=== PATIENT | female | born 1950 | race Caucasian/White ===

== ENCOUNTER 2017-10-15 12:04 | Emergency (ER) | payer OTHER ==
--- NOTE | 2017-10-15 12:06 | PDOC ---
History of Present Illness - General Chief Complaint: Suture/Staple Removal(Here) Stated Complaint: LEFT 3RD FINGER SUTURE REMOVAL Time Seen by Provider: 10/15/17 12:06 History Source: Patient Exam Limitations: No Limitations - History of Present Illness Initial Comments: 10/15/17 12:07 67 YOF with h/o HTN, depression and sz, presenting with wound reeval and suture removal. On 10/07/17 sustained laceration s/p suture placementx3 ~ 1 week ago for left middle finger laceration, since then no f/c, weakness or pain/swelling/ redness. +numbness to area. Tdap updated at that time. Past History - Past Medical History Allergies/Adverse Reactions: Allergies Allergy/AdvReac Type Severity Reaction Status Date / Time No Known Allergies Allergy Verified 10/15/17 12:06 Home Medications: Ambulatory Orders Biotin 10/07/17 Fluoxetine HCl 10/07/17 Folic Acid 10/07/17 Lamictal - 10/07/17 Multivit-Min/Iron/Folic/Lutein [Centrum Silver Women Tablet] 1 each PO DAILY 03/15 Valsartan 10/07/17 Vitamin D3 10/07/17 COPD: No HTN: Yes Psychiatric Problems: Yes (DEPRESSION) Seizures: Yes - Suicide/Smoking/Psychosocial Hx Smoking History: Never smoked Hx Alcohol Use: No Drug/Substance Use Hx: No Review of Systems - Review of Systems Able to Perform ROS?: Yes Constitutional: Yes: See HPI. No: Chills, Fever Musculoskeletal: No: Joint Pain, Joint Swelling, Muscle Pain, Muscle Weakness, Joint Stiffness Integumentary: Yes: Other (skin laceration healed) Neurological: Yes: Numbness. No: Paresthesia, Tingling, Weakness All Other Systems: Reviewed and Negative *Physical Exam - Physical Exam Comments: 10/15/17 12:10 General, well appearing. FDS/FDP intact. Sensation grossly intact to left distal middle finger, joint rom intact. 1cm linear laceration well healed with [address], no purulence erythema or swelling. Soft compartment. 2+ radialis pulses, cap refill <2 sec. Procedures - Additional Procedures Additional Procedures: other (suture removal x3 over left distal pulp middle finger, steri strips x2 placed. uncomplicated skin well approximated. no signs of bleeding or infection.) Medical Decision Making - Medical Decision Making 10/15/17 12:11 67 YOF with left middle finger laceration 10/07/17 presenting for suture removal suture removal x3 over left distal pulp middle finger, steri strips x2 placed. uncomplicated skin well approximated. no signs of bleeding or infection Discharge in stable condition. Sutures x3 removed to left middle finger, uncomplicated, skin well approximated. steri strips over the wound for improved alignment and skin wound more approximated to allow appropriate epithelialization. Wound care instructions and cleaning advised. Otc pain meds PRN. f/u pmd as needed. Monitor for signs of infection. *DC/Admit/Observation/Transfer Diagnosis at time of Disposition: Visit for suture removal - Discharge Dispostion Disposition: HOME Condition at time of disposition: Improved Decision to Admit order: No - Referrals - Patient Instructions Printed Discharge Instructions: DI for Suture Removal Additional Instructions: keep wound clean and dry, may use topical antibiotics. steri strips are strong bandaids to allow better approximation of your skin wound. monitor for signs of infection or worsening pain. follow up with your doctor as needed. motrin/ tylenol for pain - Post Discharge Activity Forms/Work/School Notes: Back to Work
[2017-10-15 12:12] VITALS: BP 133/55; PULSE 85; TEMP 98; BMI 24.7
== END 2017-10-15 12:25 | disposition home or self-care (01) ==
LOC: FER 12:04
DX: Z48.02 Encounter for removal of sutures (principal)
CPT/HCPCS: 99281-25

== ENCOUNTER 2018-03-12 09:55 | Emergency (ER) | payer OTHER ==
--- NOTE | 2018-03-12 10:03 | PDOC ---
History of Present Illness - General Chief Complaint: Headache Stated Complaint: SENT FROM [facility] FOR CAT SCAN FOR HEADACHE Time Seen by Provider: 03/12/18 10:03 - History of Present Illness Initial Comments: 67 year old female with PMH of depression and seizure disorder (2/2 left temporal lesion of unknown etiology, on lamotrigine) presenting with headache and nausea for the past four days. Patient states that she does not get headaches frequently and does not have history of migraines. Her headaches started 4 days ago and she attributed them to holiday stress so she took Tylenol with very minor relief. She used Tylenol for the next two days with minimal relief but then achieved adequate relief with Tylenol + Aleve combination. Describes the headaches as originally a sharp pain on the very top of her skull but now bi-temporal with a squeezing and sharp location with constant duration. The pain is a maximum of 8/10 in severity but can be as low as a 1/10 after medication. The pain is worse with head movement and cough but not worse at any particular time of day. She does admit to sonophobia and photophobia when the headache is particularly intense but no visual or neurological symptoms. She denies any vomiting, diarrhea, congestion, fevers, chills, cough, chest pain, or other symptoms. 03/12/18 10:18 Past History - Past Medical History Allergies/Adverse Reactions: Allergies Allergy/AdvReac Type Severity Reaction Status Date / Time No Known Allergies Allergy Verified 03/12/18 09:57 Home Medications: Ambulatory Orders Acetaminophen [Tylenol] 650 mg PO PRN 03/12/18 Cholecalciferol (Vitamin D3) [Vitamin D3] 5,000 unit PO DAILY 03/12/18 Fluoxetine HCl 10 mg PO DAILY 03/12/18 Folic Acid 1 mg PO DAILY 03/12/18 Lamotrigine [Lamictal Xr] 200 mg PO BID 03/12/18 Valsartan 160 mg PO DAILY 03/12/18 COPD: No HTN: Yes Psychiatric Problems: Yes (DEPRESSION) Seizures: Yes - Immunization History Immunization Up to Date: Yes (09/2017) - Suicide/Smoking/Psychosocial Hx Smoking History: Never smoked Have you smoked in the past 12 months: No Hx Alcohol Use: No Drug/Substance Use Hx: No Substance Use Type: None Review of Systems - Review of Systems Constitutional: No: Chills, Diaphoresis, Fever HEENTM: No: Blurred Vision, Tearing, Double Vision Respiratory: No: Cough, Orthopnea, Shortness of Breath, Wheezing Cardiac (ROS): No: Chest Pain, Edema, Irregular Heart Rate ABD/GI: Yes: Nausea. No: Diarrhea, Poor Appetite, Vomiting, Indigestion : No: Burning, Dysuria, Discharge Musculoskeletal: No: See HPI, Back Pain, Gout, Joint Pain Integumentary: No: Erythema, Flushing, Lesions, Lumps Neurological: Yes: Headache, Seizure. No: Numbness, Paresthesia, Tremors, Weakness, Ataxia, Dizziness Psychiatric: Yes: Depression. No: Anxiety Hematologic/Lymphatic: No: Anemia, Blood Clots, Easy Bleeding *Physical Exam - Physical Exam General Appearance: Yes: Nourished, Appropriately Dressed. No: Apparent Distress HEENT: positive: EOMI, LYNN, Normal ENT Inspection, Normal Voice Neck: positive: Trachea midline, Normal Thyroid, Supple. negative: Tender, Rigid Respiratory/Chest: positive: Lungs Clear, Normal Breath Sounds. negative: Chest Tender, Respiratory Distress, Accessory Muscle Use Cardiovascular: positive: Regular Rhythm, Regular Rate Gastrointestinal/Abdominal: positive: Normal Bowel Sounds, Flat, Soft. negative : Tender Lymphatic: negative: Adenopathy, Tenderness Musculoskeletal: positive: Normal Inspection Extremity: positive: Normal Capillary Refill, Normal Inspection, Normal Range of Motion. negative: Tender Integumentary: positive: Normal Color, Dry, Warm Neurologic: positive: parakeet raiser II-XII NML intact, Fully Oriented, Alert, Normal Mood/ Affect, Normal Response, Motor Strength 5/5 ED Treatment Course - LABORATORY CBC & Chemistry Diagram: 03/12/18 10:37 03/12/18 10:37 Medical Decision Making - Medical Decision Making 67 year old female with PMH of temporal lesion with seizures who has been asymptomatic for the past few years presenting with headache. She does describe symptoms somewhat consistent with migraine, photophobia/ sonophobia but given her lesion we should rule out intra-cranial mass especially because of constant quality of pain and worsening with movement. No nuchal rigidity or fevers to suggest meningitis and no palpable tenderness or firmness over temporal regions to suggest GCA along with normal ESR. Patient given one dose toradol IV, I L IV NS, and 10 PO Reglan with good relief of her symptoms. 03/12/18 12:03 *DC/Admit/Observation/Transfer Diagnosis at time of Disposition: Headache Qualifiers: Headache type: unspecified Headache chronicity pattern: acute headache Intractability: not intractable Qualified Code(s): R51 - Headache - Discharge Dispostion Disposition: HOME Condition at time of disposition: Stable Decision to Admit order: No - Referrals Referrals: [facility] [Provider Group] - Patient Instructions Printed Discharge Instructions: DI for Headache Additional Instructions: Your head CT did not show any bleed or mass. Your symptoms do seem migraine- like. You should continue to stay hydrated at home and use Tylenol/ Motrin for the headache as needed. Please follow up with the primary care doctor this week to have someone to manage your medications as you spend a good time here in [place]. Please return to the the ED if you have any new or worsening symptoms. - Post Discharge Activity
--- NOTE | 2018-03-12 10:05 | PDOC ---
Attending Attestation - Resident Resident Name: Naomi Cueto - ED Attending Attestation I have performed the following: I have examined & evaluated the patient, The case was reviewed & discussed with the resident, I agree w/resident's findings & plan, Exceptions are as noted - HPI HPI: 03/12/18 10:50 Patient is from [place], here visiting her family for the holidays, complains of an intermittent headache for the last few days. Headaches began while she was in [place], persisted upon arriving here in the ER, partially relieved by acetaminophen and naproxen, but continuously present. Minimal nausea, no vomiting, no photophobia, no URI symptoms, earache, cough, chest pain, shortness of breath, abdominal pain, diarrhea, hematemesis, melena, bloody stool. The patient seldom suffers headaches, has a seizure disorder manifested as partial, affecting speech and comprehension, with no actual seizures in several years. Diagnosed approximately 25 years ago, maintained on lamotrogine, seemingly emanating from a benign lesion in her left temporal lobe. She is under the care of a neurologist with frequent reevaluation, most recently in August. She has had no recent complications. No recent imaging studies. - Physicial Exam PE: 03/12/18 10:54 Physical exam reveals a well-developed well-nourished female in no acute distress, cheerful and cooperative, intelligent and well informed about her condition Afebrile, vital signs normal PERRLA 4 mm, fundi benign with sharp disc margins and good central venous pulsations. No hemorrhages or exudates ENT clear Neck supple without bruit mass or nodes Lungs clear CV regular without murmur rub or gallop pulses full and symmetric no JVD or edema no bruits Abdomen soft nontender without mass or organomegaly Neurological: Fully alert, oriented 3, normal mentation. Cranial nerves intact. Strength full and symmetric. No focal sensory or motor deficits. Gait stable and unimpaired Skin clear, no rash, adequate turgor and wet mucous membranes Extremities no CCE - Medical Decision Making 03/12/18 10:55 Assessment: Unusually persistent headache in woman with known lesion of the temporal lobe and resultant seizure disorder. Seizure disorder is controlled. No other signs or symptoms of increasing size of space-occupying lesion. No signs of URI or sinusitis. Most likely this is tension/stress related. Plan: CT of the brain and further evaluation depending on results. Symptomatic treatment. 03/12/18 11:26 CT today is negative. CBC and chemistries without significant abnormalities. Continue analgesics as needed and see neurologist if symptoms persist 2-3 days. Fully ambulatory, in no apparent pain or other distress upon discharge to follow -up as directed
[2018-03-12 10:15] VITALS: TEMP 99; BMI 24.3
[2018-03-12] MEDS ORDERED: SODIUM CHLORIDE 0.9% 500 ML INFUS.BAG IV ONE (10:17)
[2018-03-12] MEDS ORDERED: METOCLOPRAMIDE HCL 10 MG TABLET (FP) PO ONE ×2 (10:17→10:19)
[2018-03-12 10:40] LABS: MEAN PLT VOLUME 6.9 fl (7.5-11.1); PLATELET COUNT 184 K/MM3 (134-434)
[2018-03-12 10:43] LABS: HEMATOCRIT 39.3 % (32.4-45.2); HEMOGLOBIN 13.2 GM/dl (10.7-15.3); MCH 32.7 pg (25.7-33.7); MCHC 33.7 g/dl (32.0-36.0); RBC 4.05 M/mm3 (3.60-5.2); RDW 12.7 % (11.6-15.6)
[2018-03-12 11:03] LABS: ALBUMIN 3.6 g/dl (3.5-5.0); ALK PHOS 94 U/L (32-92); ANION GAP 9 MMOL/L (8-16); BILIRUBIN,TOTAL 0.6 mg/dl (0.2-1.0); BLOOD UREA NITROGEN 17 mg/dl (7-18); CHLORIDE 104 mmol/L (98-107); CO2 22 mmol/L (22-28); CREATININE 0.8 mg/dl (0.6-1.3); GLUCOSE,RANDOM 92 mg/dl (74-106); POTASSIUM 3.9 mmol/L (3.5-5.1); SGOT/AST 36 U/L (10-42); SGPT/ALT 33 U/L (10-40); SODIUM 135 mmol/L (136-145); TOT PROT 6.3 g/dl (6.4-8.3)
[2018-03-12 11:32] LABS: ERYTHROCYTE SEDIMENTATION RATE 14 mm/hr (0-30)
[2018-03-12] MEDS ORDERED: KETOROLAC TROMETHAMINE 15 MG/ML VIAL IVPUSH ONE (11:49)
[2018-03-12] MEDS ORDERED: KETOROLAC TROMETHAMINE 15 MG/ML VIAL ONE (11:54)
[2018-03-12 12:26] VITALS: BP 135/62; PULSE 62
[2018-03-12 12:43] LABS: PLATELET ESTIMATE ADEQUATE
== END 2018-03-12 12:29 | disposition home or self-care (01) ==
LOC: FER 09:55
PROC: 3E0337Z Introduction of Electrolytic and Water Balance Substance into Peripheral Vein, Percutaneous Approach (ICD-10-PCS; principal; 2018-03-12)
PROC: 3E0333Z Introduction of Anti-inflammatory into Peripheral Vein, Percutaneous Approach (ICD-10-PCS; 2018-03-12)
DX: R51 Headache (principal); I10 Essential (primary) hypertension; F32.9 Major depressive disorder, single episode, unspecified
CPT/HCPCS: 36415; 70450-TC; 80053; 85025; 85651; 99282-25

== ENCOUNTER 2018-03-14 17:31 | Inpatient (IN) | payer OTHER ==
[2018-03-14 17:36] VITALS: BMI 24.3
[2018-03-14] MEDS ORDERED: VANCOMYCIN 1 GRAM (PRE-DOCKED) 1,000 MG/250 ML BAG IVPB ONE (18:02)
[2018-03-14] MEDS ORDERED: DEXAMETHASONE SOD PHOSPHATE 4 MG/1 ML VIAL IVPUSH ONE (18:11)
--- NOTE | 2018-03-14 18:18 | PDOC ---
History of Present Illness - General Chief Complaint: Headache Stated Complaint: fever,headache Time Seen by Provider: 03/14/18 17:42 History Source: Patient Exam Limitations: No Limitations - History of Present Illness Initial Comments: 03/14/18 18:42 67 year old woman with history HTN, epilepsy and depression who presents with headache and nausea that onset 6 days ago and has been waxing and waning. Now patient with new fever of 101.8 (tm) that occurred just prior to arrival, after which she took Advil. The patient was seen 2 days ago in the ED and had a head CT that was negative. The headache is described as "pulsing and pounding" worsening with very bright lights and with high pitches. The patients headache and nausea was previously relieved with Tylenol and Advil but since last night has not been able to have relief with those medications. She complains of some "neck stiffness" but denies any limit in range of motion. She denies muscle aches or weakness, dysuria, hematuria, N/V/D/C. She has no other complaints at bedside. PMHX: as in HPI Meds: valsartan, lamotrigine, fluoxetine Allergies: NKDA Past History - Past Medical History Allergies/Adverse Reactions: Allergies Allergy/AdvReac Type Severity Reaction Status Date / Time No Known Allergies Allergy Verified 03/14/18 17:33 Home Medications: Ambulatory Orders Cholecalciferol (Vitamin D3) [Vitamin D3] 5,000 unit PO DAILY 03/12/18 Fluoxetine HCl 20 mg PO DAILY 03/12/18 Folic Acid 1 mg PO DAILY 03/12/18 Lamotrigine [Lamictal Xr] 200 mg PO BID 03/12/18 Valsartan 160 mg PO DAILY 03/12/18 COPD: No HTN: Yes Psychiatric Problems: Yes (DEPRESSION) Seizures: Yes - Immunization History Immunization Up to Date: Yes (09/2017) - Suicide/Smoking/Psychosocial Hx Smoking History: Never smoked Have you smoked in the past 12 months: No Hx Alcohol Use: No Drug/Substance Use Hx: No Substance Use Type: None Review of Systems - Review of Systems Able to Perform ROS?: Yes Is the patient limited Martiniquais proficient: No Constitutional: Yes: Chills, Fever. No: Diaphoresis HEENTM: No: Blurred Vision, Tearing, Double Vision, Tinnitus Respiratory: No: Cough, Orthopnea, Shortness of Breath Cardiac (ROS): No: Chest Pain, Palpitations, Chest Tightness ABD/GI: No: Constipated, Diarrhea, Nausea, Vomiting : No: Burning, Dysuria, Hematuria Musculoskeletal: No: Back Pain, Muscle Pain, Muscle Weakness Neurological: Yes: See HPI, Headache. No: Numbness, Paresthesia, Tingling *Physical Exam - Vital Signs Last Vital Signs Temp Pulse Resp BP Pulse Ox 0/0 L 03/14/18 17:32 - Physical Exam Comments: 03/14/18 18:52 GENERAL: Awake, alert, and fully oriented, in no acute distress HEAD: No signs of trauma, normocephalic, atraumatic EYES: PERRLA, EOMI, sclera anicteric, conjunctiva clear ENT: Auricles normal inspection, hearing grossly normal, nares patent, oropharynx clear without exudates. Moist mucosa, NECK: Normal ROM, supple, + mild cervical lymph tenderness, no masses LUNGS: No distress, speaks full sentences, clear to auscultation bilaterally HEART: Regular rate and rhythm, normal S1 and S2, no murmurs, rubs or gallops, peripheral pulses normal and equal bilaterally. ABDOMEN: Soft,+ LUQ tenderness to palpation, + LUQ guarding, no rebound. No masses BACK: + bilateral CVA tenderness, negative Kernigs, neg Brudzinski EXTREMITIES : Normal inspection, Normal range of motion, no edema. No clubbing or cyanosis. NEUROLOGICAL: Cranial nerves II through XII grossly intact. Normal speech, no focal sensorimotor deficits SKIN: Warm, Dry, normal turgor, no rashes or lesions noted Moderate Sedation - Procedure Monitoring Vital Signs: Procedure Monitoring Vital Signs Temperature Pulse Rate Respiratory Rate Blood Pressure 0/0 L 03/14/18 17:32 O2 Sat by Pulse Oximetry (%) ED Treatment Course - LABORATORY CBC & Chemistry Diagram: 03/14/18 18:31 03/14/18 18:31 Medical Decision Making - Medical Decision Making 03/14/18 18:54 67 year old woman with history HTN, epilepsy and depression who presents with headache and nausea that onset 6 days ago and has been waxing and waning. The patient was seen 2 days ago in the ED and had a head CT that was negative. The headache is described as "pulsing and pounding" worsening with very bright lights and with high pitches. The patients headache and nausea was previously relieved with Tylenol and Advil but since last night has not been able to have relief with those medications. She complains of some "neck stiffness" but denies any limit in range of motion. She denies muscle aches or weakness, dysuria, hematuria, N/V/D/C. She has no other complaints at bedside. DDX including but not limited to: viral meningitis vs bacterial meningitis vs migraine vs influenza W/U: - cbc, cmp, pt/inr, ptt - cxr - head ct - abd us - ua, ucx TX: - ceftriaxone, vancomycin - ns ED Course: Patient is weak appearing. complainging of neck sitffness and has a history concerning for meningitis However patient with full range of motion of the neck, negative brudzinski and kernigs, Will evaluate. 03/14/18 19:30 Patient signed out to oncoming team. Dr. Stock attending. *DC/Admit/Observation/Transfer Diagnosis at time of Disposition: Headache - Discharge Dispostion Condition at time of disposition: Stable - Referrals Referrals: Tadeo Singletary [Primary Care Provider] - - Patient Instructions - Post Discharge Activity
[2018-03-14 18:39] LABS: PH,URINE 5.5 (4.5-8); URINE APPEARANCE Clear; URINE BILIRUBIN 1+ (NEGATIVE); URINE COLOR Yellow; URINE GLUCOSE (UA) Negative (NEGATIVE); URINE KETONE 4+ (NEGATIVE); URINE LEUK ESTERASE Negative (NEGATIVE); URINE NITRITE Negative (NEGATIVE); URINE PROTEIN Trace (NEGATIVE); URINE UROBILINOGEN 0.2 (0.2-1.0)
[2018-03-14] MEDS ORDERED: ACETAMINOPHEN 1000 MG/100 ML VIAL (NON FORMULARY) IVPB ONE (18:41)
[2018-03-14] MEDS ORDERED: SODIUM CHLORIDE 0.9% 1000 ML INFUS.BAG IV ONE (18:41)
--- NOTE | 2018-03-14 18:42 | PDOC ---
Attending Attestation - Resident Resident Name: Juanita Carbone - ED Attending Attestation I have performed the following: I have examined & evaluated the patient, The case was reviewed & discussed with the resident, I agree w/resident's findings & plan, Exceptions are as noted - HPI HPI: 03/14/18 18:39 67 years old past medical history significant for depression seizure disorder well controlled on Lamictal presents to the emergency department with now has 6 day history of headache progressively worsening 1 headache started 4 days ago very sudden onset she came to the emergency department had a CAT scan done and was given Reglan and Benadryl with good improvement in symptomatology. Over the last few days patient now with fevers controlled by Motrin chills rigor sweats, aggressively worsening headache and some subjective neck pain. She was seen by her neurologist today and sent back to the emergency department for further evaluation. No travel no sick contacts no nausea no vomiting no change in mental status - Physicial Exam PE: 03/14/18 18:39 Vitals: Triage Vital signs reviewed General Appearance: no acute distress, well nourished well developed, Head: Atraumatic, Eyes: Pupils equal reactive round, extraocular movement intact Throat: Posterior oropharynx without erythema, mucous membranes moist, Neck: Supple;No Nucal rigidity Chest Wall: Nontender Cardiac: Regular rate and rhythym, no murmurs, no rubs, no gallops, Lungs: Clear to auscultation bilateral, good air movement bilaterally, Abdomen: Soft, non distended, normal bowel sounds, mild right upper quadrant tenderness to palpation Extremities: Full range of motion to all extremities, no cyanosis, clubbing, or edema Skin: Warm and dry, no rashes or lesions, no rash, no petechiae Neuro: AOX3; Cranial Nerves 2-12 grossly intact, Strength intact to all extremities, Sensation intact to all extremities,gait normal Psych: normal mood, normal affect - Medical Decision Making 03/14/18 18:40 67 years old with several day history of headache now complicated by fever chills sweats and riders Differential diagnosis includes influenzal-like illness less likely meningitis however given this possibility while we workup the patient in the emergency department Decadron and ceftriaxone and vancomycin was ordered Plan is for hydration IV Tylenol labs flu swab right upper quadrant ultrasound given tenderness to palpation observe and reassess. Dr. Nassef to follow up labs, and reassass pt. and dispo
[2018-03-14 18:55] LABS: ACTIVATED PTT 25.3 SECONDS (25.2-36.5)
[2018-03-14 19:00] LABS: INR 1.02 (0.82-1.09); PROTHROMBIN TIME (PATIENT) 11.4 SEC (10.2-13.0)
[2018-03-14 19:04] LABS: ALBUMIN 3.5 g/dl (3.5-5.0); ALK PHOS 97 U/L (32-92); ANION GAP 11 MMOL/L (8-16); BILIRUBIN,TOTAL 0.8 mg/dl (0.2-1.0); BLOOD UREA NITROGEN 6 mg/dl (7-18); CALCIUM 8.9 mg/dl (8.4-10.2); CHLORIDE 96 mmol/L (98-107); CO2 24 mmol/L (22-28); CREATININE 0.6 mg/dl (0.6-1.3); GLUCOSE,RANDOM 112 mg/dl (74-106); POTASSIUM 3.6 mmol/L (3.5-5.1); SGOT/AST 66 U/L (10-42); SGPT/ALT 71 U/L (10-40); SODIUM 131 mmol/L (136-145); TOT PROT 6.2 g/dl (6.4-8.3)
[2018-03-14] MEDS ORDERED: DEXAMETHASONE SOD PHOSPHATE 4 MG/1 ML VIAL ONE (19:09)
[2018-03-14 19:10] LABS: BASO % 0.3 % (0-2.0); EOS % 0.1 % (0-4.5); HEMATOCRIT 38.5 % (32.4-45.2); HEMOGLOBIN 13.1 GM/dl (10.7-15.3); MCH 32.8 pg (25.7-33.7); MCHC 33.9 g/dl (32.0-36.0); MEAN CELL VOLUME 96.6 fl (80-96); MEAN PLT VOLUME 7.4 fl (7.5-11.1); MONO % 6.9 % (3.8-10.2); NEUT % 77.7 % (42.8-82.8); PLATELET COUNT 193 K/MM3 (134-434); RBC 3.98 M/mm3 (3.60-5.2); RDW 12.5 % (11.6-15.6); WHITE BLOOD COUNT 5.3 K/mm3 (4.0-10.8)
[2018-03-14] MEDS ORDERED: ACETAMINOPHEN INJECTION 100 ML IVPB ONE (19:34)
[2018-03-14] MEDS ORDERED: VANCOMYCIN 1,000 MG VIAL (RESTRICTED TO ID ONLY) ONE (20:18)
[2018-03-14 20:19] LABS: EPI CELLS FEW /HPF; URINE BACTERIA 1+ /hpf (NEGATIVE)
[2018-03-14] MEDS: VANCOMYCIN 1,000 MG in DEXTROSE 5%-WATER - 250 ML IVPB ONE ×2 (20:27→20:55)
[2018-03-14] MEDS ORDERED: SODIUM CHLORIDE 1,000 ML IV STA (22:08)
--- NOTE | 2018-03-14 22:14 | PDOC ---
*Physical Exam - Vital Signs Last Vital Signs Temp Pulse Resp BP Pulse Ox 98.8 F 69 16 134/56 L 95 03/14/18 19:44 03/14/18 19:44 03/14/18 19:44 03/14/18 19:44 03/14/18 19:44 <Deborah Scott - Last Filed: 03/15/18 00:37> - Vital Signs Last Vital Signs Temp Pulse Resp BP Pulse Ox 98.8 F 69 16 134/56 L 95 03/14/18 19:44 03/14/18 19:44 03/14/18 19:44 03/14/18 19:44 03/14/18 19:44 - Physical Exam Comments: 03/15/18 23:31 Care received at 1900 Briefly, 67yo F hx seizure d/o, depression, HTN presents to the ED with progressive headache, fever today to 101, neck pain, and RUQ pain. Work up thus far with mildly elevated LFTs compared to labs from a few days ago , US pending, CTH read pending, LP pending Headache persistent despite meds, pt was treated for meningitis by previous team with dex, vanc, ceftriaxone On my eval, headache improved but still present. Pt well appearing. +RUQ ttp US reveals large 2.1cm stone, mild wall thickening and pericholecystic fluid. Dr. La consulted, requests 2nd L fluids, type and screen which were ordered, will see pt. CTH with no acute findings, Pt consented for LP, risks and benefits discussed Pt noted to have scoliosis, LP attempted, unsuccessful. 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, pt accepted for admission <Jean Carlos Stock - Last Filed: 03/15/18 06:45> ED Treatment Course - LABORATORY CBC & Chemistry Diagram: 03/14/18 18:31 03/14/18 18:31 - ADDITIONAL ORDERS Additional order review: Laboratory Results 03/14/1818 03/14/18 18:31 18:31 18:31 PT with INR 11.4 INR 1.02 PTT (Actin FS) 25.3 Sodium 131 L Potassium 3.6 Chloride 96 L Carbon Dioxide 24 Anion Gap 11 BUN 6 L Creatinine 0.6 Creat Clearance w eGFR > 60 Random Glucose 112 H D Lactic Acid 0.9 Calcium 8.9 Total Bilirubin 0.8 AST 66 H D ALT 71 H D Alkaline Phosphatase 97 H Total Protein 6.2 L Albumin 3.5 Urine Color Urine Appearance Urine pH Ur Specific [place] Urine Protein Urine Glucose (UA) Urine Ketones Urine Blood Urine Nitrite Urine Bilirubin Urine Urobilinogen Ur Leukocyte Esterase Urine RBC Urine WBC Ur Epithelial Cells Urine Bacteria 03/14/18 18:31 PT with INR INR PTT (Actin FS) Sodium Potassium Chloride Carbon Dioxide Anion Gap BUN Creatinine Creat Clearance w eGFR Random Glucose Lactic Acid Calcium Total Bilirubin AST ALT Alkaline Phosphatase Total Protein Albumin Urine Color Yellow Urine Appearance Clear Urine pH 5.5 Ur Specific [place] 1.025 Urine Protein Trace Urine Glucose (UA) Negative Urine Ketones 4+ H Urine Blood Trace-intact H Urine Nitrite Negative Urine Bilirubin 1+ H Urine Urobilinogen 0.2 Ur Leukocyte Esterase Negative Urine RBC 2-5 Urine WBC 2-5 Ur Epithelial Cells Few Urine Bacteria 1+ 03/14/18 18:31 RBC 3.98 MCV 96.6 H MCHC 33.9 RDW 12.5 MPV 7.4 L Neutrophils % 77.7 Lymphocytes % 15.0 Monocytes % 6.9 Eosinophils % 0.1 Basophils % 0.3 - RADIOLOGY Radiograph Interpretation: CT/HEAD CT WITHOUT CONTRAST Impression: No significant interval change or acute intracranial pathology is identified. Correlate clinically to determine further evaluation and follow-up. Reported By: Cassie Lee MD 03/14/18 20:01. US/ABDOMEN US Impression: Cholelithiasis with borderline thickening of the gallbladder wall and a trace of pericholecystic free fluid. Correlate clinically and further evaluation is needed to rule out cholecystitis. Minimal dilatation of the right renal pelvis that may represent an extrarenal pelvis. Reported By: Cassie Lee MD 03/14/18 21:23. RAD/CHEST X-RAY Impression: Unremarkable examination. Reported By: Cassie Lee MD 03/14/18 23:49. 03/15/18 00:27 - Medications Given in the ED: ED Medications Discontinued Medications Generic Name Dose Route Start Last Admin Trade Name Freq PRN Reason Stop Dose Admin Acetaminophen 1,000 mg 03/14/18 18:41 03/14/18 19:39 Ofirmev Injection - IVPB 03/14/18 18:42 1,000 mg ONCE ONE Administration Ceftriaxone Sodium 2,000 mg 03/14/18 18:02 03/14/18 18:50 Rocephin - IVPUSH 03/14/18 18:03 2,000 mg ONCE ONE Administration Dexamethasone Sodium Phosphate 4 mg 03/14/18 18:11 03/14/18 19:00 Decadron Injection - IVPUSH 03/14/18 18:12 4 mg ONCE ONE Administration Vancomycin HCl 1,000 mg/ 250 mls @ 166.667 mls/hr 03/14/18 18:51 03/14/18 20: 55 Dextrose IVPB 03/14/18 20:20 Not Given ONCE ONE Protocol Sodium Chloride 1,000 ml 03/14/18 18:41 03/14/18 19:06 Normal Saline - IV 03/14/18 18:42 1,000 ml ONCE ONE Administration Vancomycin HCl 1,000 mg 03/14/18 18:02 03/14/18 20:25 Vancomycin (Pre-Docked) IVPB 03/14/18 18:03 1,000 mg ONCE ONE Administration Protocol - Consult/PCP Time Called: 22:05 (Discussed care of patient ) Case discussed with personal care physician: Sheldon La <Deborah Scott - Last Filed: 03/15/18 00:37> - LABORATORY CBC & Chemistry Diagram: 03/14/18 18:31 03/14/18 18:31 - ADDITIONAL ORDERS Additional order review: Laboratory Results 03/14/18 03/14/18 03/14/18 18:31 18:31 18:31 PT with INR 11.4 INR 1.02 PTT (Actin FS) 25.3 Sodium 131 L Potassium 3.6 Chloride 96 L Carbon Dioxide 24 Anion Gap 11 BUN 6 L Creatinine 0.6 Creat Clearance w eGFR > 60 Random Glucose 112 H D Lactic Acid 0.9 Calcium 8.9 Total Bilirubin 0.8 AST 66 H D ALT 71 H D Alkaline Phosphatase 97 H Total Protein 6.2 L Albumin 3.5 Urine Color Urine Appearance Urine pH Ur Specific [place] Urine Protein Urine Glucose (UA) Urine Ketones Urine Blood Urine Nitrite Urine Bilirubin Urine Urobilinogen Ur Leukocyte Esterase Urine RBC Urine WBC Ur Epithelial Cells Urine Bacteria 03/14/18 18:31 PT with INR INR PTT (Actin FS) Sodium Potassium Chloride Carbon Dioxide Anion Gap BUN Creatinine Creat Clearance w eGFR Random Glucose Lactic Acid Calcium Total Bilirubin AST ALT Alkaline Phosphatase Total Protein Albumin Urine Color Yellow Urine Appearance Clear Urine pH 5.5 Ur Specific [place] 1.025 Urine Protein Trace Urine Glucose (UA) Negative Urine Ketones 4+ H Urine Blood Trace-intact H Urine Nitrite Negative Urine Bilirubin 1+ H Urine Urobilinogen 0.2 Ur Leukocyte Esterase Negative Urine RBC 2-5 Urine WBC 2-5 Ur Epithelial Cells Few Urine Bacteria 1+ 03/14/18 18:31 RBC 3.98 MCV 96.6 H MCHC 33.9 RDW 12.5 MPV 7.4 L Neutrophils % 77.7 Lymphocytes % 15.0 Monocytes % 6.9 Eosinophils % 0.1 Basophils % 0.3 - Medications Given in the ED: ED Medications Discontinued Medications Generic Name Dose Route Start Last Admin Trade Name Agustínq PRN Reason Stop Dose Admin Acetaminophen 1,000 mg 03/14/18 18:41 03/14/18 19:39 Ofirmev Injection - IVPB 03/14/18 18:42 1,000 mg ONCE ONE Administration Ceftriaxone Sodium 2,000 mg 03/14/18 18:02 03/14/18 18:50 Rocephin - IVPUSH 03/14/18 18:03 2,000 mg ONCE ONE Administration Dexamethasone Sodium Phosphate 4 mg 03/14/18 18:11 03/14/18 19:00 Decadron Injection - IVPUSH 03/14/18 18:12 4 mg ONCE ONE Administration Vancomycin HCl 1,000 mg/ 250 mls @ 166.667 mls/hr 03/14/18 18:51 03/14/18 20: 55 Dextrose IVPB 03/14/18 20:20 Not Given ONCE ONE Protocol Sodium Chloride 1,000 ml 03/14/18 18:41 03/14/18 19:06 Normal Saline - IV 03/14/18 18:42 1,000 ml ONCE ONE Administration Vancomycin HCl 1,000 mg 03/14/18 18:02 03/14/18 20:25 Vancomycin (Pre-Docked) IVPB 03/14/18 18:03 1,000 mg ONCE ONE Administration Protocol <Jean Carlos Stock - Last Filed: 03/15/18 06:45> *DC/Admit/Observation/Transfer - Attestations Scribe Attestion: 03/14/18 23:06 Documentation prepared by SHIRA Tavarez, acting as medical coding instructor for Jean Carlos Stock MD. <Deborah Scott - Last Filed: 03/15/18 00:37> - Discharge Dispostion Decision to Admit order: Yes - Attestations Physician Attestion: 03/15/18 00:39 I, Dr. Jean Carlos Stock MD, attest that this document has been prepared under my direction and personally reviewed by me in its entirety. I further attest, that it accurately reflects all work, treatment, procedures and medical decision -making performed by me. <Jean Carlos Stock - Last Filed: 03/15/18 06:45> Diagnosis at time of Disposition: Headache - Discharge Dispostion Condition at time of disposition: Stable
[2018-03-15] MEDS ORDERED: LIDOCAINE HCL 1%, 10 MG/ML (20ML VIAL) ONE (00:04)
[2018-03-15] MEDS: ACETAMINOPHEN 500 MG TABLET (FP) PO PRN ×2 (02:00→20:01)
[2018-03-15] MEDS: SODIUM CHLORIDE 1,000 ML IV SCH (02:00)
[2018-03-15] MEDS: GABAPENTIN 100 MG CAPSULE (FP) PO SCH ×3 (02:02→21:42)
[2018-03-15 08:23] LABS: HEMATOCRIT 33.8 % (32.4-45.2); HEMOGLOBIN 10.9 GM/dl (10.7-15.3); MCH 31.3 pg (25.7-33.7); MCHC 32.3 g/dl (32.0-36.0); PLATELET COUNT 172 K/MM3 (134-434); RBC 3.48 M/mm3 (3.60-5.2); RDW 12.4 % (11.6-15.6); WHITE BLOOD COUNT 3.8 K/mm3 (4.0-10.8)
[2018-03-15 08:26] LABS: BLOOD UREA NITROGEN 7 mg/dl (7-18); CALCIUM 8.1 mg/dl (8.4-10.2); CO2 22 mmol/L (22-28); CREATININE 0.5 mg/dl (0.6-1.3)
--- NOTE | 2018-03-15 08:53 | PN ---
Progress Note (short form) - Note Progress Note: ID Consult dictated Probable viral meningitis LP unsuccessful in ER Please arrange for urgent LP in IR
--- NOTE | 2018-03-15 09:17 | HP ---
CHIEF COMPLAINT: Headache PCP/Neurologist: Dr. 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 Patient lives in [place], is here visiting family for the holidays. On 03/12, patient presented to the ED with a complaint of headache x 4 days. She self-treated with Tyelnol and Aleve with some relief, but headache persisted. The headache was associated with nausea and sensitivity to sound and light. The patient was sent for a CT head which was unremarkable. She was discharged to home with a recommendation to continue OTC analgesics. On 03/14, patient returned to the ED with a complaint of peristent headache, rigors, and an oral temp taken at home of 101.8. Patient also reported some neck pain. A lumbar puncture was attempted in ED but was unsuccessful. Patient denies history of chronic headaches or migraines. She follows regularly with neurologist Dr. Tadeo Singletary. ER course was notable for: (1) Afebrile, no leukocytosis (2) NS x 1L, metoclopramine 10mg x 1, ketorolac IVP 15mg x 1, dexamethasone IVP 4mg x 1 (3) Ceftriaxone 2g x 1; vanc 1g x 1 (4) Repeat CT head unremarkable Recent Travel: From [place], in [place] for holidays PAST MEDICAL HISTORY: Seizure disorder Temporal lobe lesion Depression Alcohol abuse (remote) PAST SURGICAL HISTORY: None reported Social History: Smoking:no Alcohol: sober x 12 years Drugs: no Family History: Allergies No Known Allergies Allergy (Verified 03/14/18 17:33) HOME MEDICATIONS: Home Medications Medication Instructions Recorded Cholecalciferol (Vitamin D3) 5,000 unit PO DAILY 03/12/18 [Vitamin D3] Fluoxetine HCl 20 mg PO DAILY 03/12/18 Folic Acid 1 mg PO DAILY 03/12/18 Lamotrigine [Lamictal Xr] 200 mg PO BID 03/12/18 Valsartan 160 mg PO DAILY 03/12/18 Gabapentin 200 mg PO HS 03/14/18 REVIEW OF SYSTEMS CONSTITUTIONAL: +fever, chills Absent: fever, chills, diaphoresis, generalized weakness, malaise, loss of appetite, weight change HEENT: Absent: rhinorrhea, nasal congestion, throat pain, throat swelling, difficulty swallowing, mouth swelling, ear pain, eye pain, visual changes CARDIOVASCULAR: Absent: chest pain, syncope, palpitations, irregular heart rate, lightheadedness , peripheral edema RESPIRATORY: Absent: cough, shortness of breath, dyspnea with exertion, orthopnea, wheezing, stridor, hemoptysis GASTROINTESTINAL: Absent: abdominal pain, abdominal distension, nausea, vomiting, diarrhea, constipation, melena, hematochezia GENITOURINARY: Absent: dysuria, frequency, urgency, hesitancy, hematuria, flank pain, genital pain MUSCULOSKELETAL: Absent: myalgia, arthralgia, joint swelling, back pain, neck pain SKIN: Absent: rash, itching, pallor HEMATOLOGIC/IMMUNOLOGIC: Absent: easy bleeding, easy bruising, lymphadenopathy, frequent infections ENDOCRINE: Absent: unexplained weight gain, unexplained weight loss, heat intolerance, cold intolerance NEUROLOGIC: +headache, nausea Absent: headache, focal weakness or paresthesias, dizziness, unsteady gait, seizure, mental status changes, bladder or bowel incontinence PSYCHIATRIC: Absent: anxiety, depression, suicidal or homicidal ideation, hallucinations. PHYSICAL EXAMINATION Vital Signs - 24 hr 03/14/18 03/14/18 03/15/18 17:32 19:44 00:23 Temperature 98.8 F 98.8 F 98.5 F Pulse Rate 60 Pulse Rate [ 69 64 Left] Respiratory 18 16 Rate Blood Pressure 138/56 L Blood Pressure 134/56 L 133/64 [Left] O2 Sat by Pulse 99 95 96 Oximetry (%) GENERAL: Awake, alert, and fully oriented, in no acute distress. HEAD: Normal with no signs of trauma. EYES: Pupils equal, round and reactive to light, extraocular movements intact, sclera anicteric, conjunctiva clear. EARS, NOSE, THROAT: Ears normal, nares patent, oropharynx clear without exudates. Moist mucous membranes. NECK: Normal range of motion, supple without lymphadenopathy, JVD, or masses. LUNGS: Breath sounds equal, clear to auscultation bilaterally. No wheezes, and no crackles. No accessory muscle use. HEART: Regular rate and rhythm, S1 and S2 without murmur, rub or gallop. ABDOMEN: Soft, nontender, not distended, normoactive bowel sounds, no guarding, no rebound MUSCULOSKELETAL: Normal range of motion at all joints. No bony deformities or tenderness. No CVA tenderness. UPPER EXTREMITIES: 2+ pulses, warm, well-perfused. No cyanosis. No clubbing. No peripheral edema. LOWER EXTREMITIES: 2+ pulses, warm, well-perfused. No calf tenderness. No peripheral edema. NEUROLOGICAL: Cranial nerves II-XII intact. Normal speech. Normal gait. PSYCHIATRIC: Cooperative. Good eye contact. Appropriate mood and affect. SKIN: Warm, dry, normal turgor, no rashes or lesions noted, normal capillary refill. Laboratory Results - last 24 hr 03/14/1818 18 18:31 18:31 18:31 WBC 5.3 RBC 3.98 Hgb 13.1 Hct 38.5 MCV 96.6 H MCH 32.8 MCHC 33.9 RDW 12.5 Plt Count 193 MPV 7.4 L Absolute Neuts (auto) 4.1 Neutrophils % 77.7 Lymphocytes % 15.0 Monocytes % 6.9 Eosinophils % 0.1 Basophils % 0.3 PT with INR INR PTT (Actin FS) Sodium 131 L Potassium 3.6 Chloride 96 L Carbon Dioxide 24 Anion Gap 11 BUN 6 L Creatinine 0.6 Creat Clearance w eGFR > 60 Random Glucose 112 H D Lactic Acid Calcium 8.9 Total Bilirubin 0.8 AST 66 H D ALT 71 H D Alkaline Phosphatase 97 H Total Protein 6.2 L Albumin 3.5 Lipase Urine Color Yellow Urine Appearance Clear Urine pH 5.5 Ur Specific [place] 1.025 Urine Protein Trace Urine Glucose (UA) Negative Urine Ketones 4+ H Urine Blood Trace-intact H Urine Nitrite Negative Urine Bilirubin 1+ H Urine Urobilinogen 0.2 Ur Leukocyte Esterase Negative Urine RBC 2-5 Urine WBC 2-5 Ur Epithelial Cells Few Urine Bacteria 1+ Influenza A (Rapid) Influenza B (Rapid) Blood Type Antibody Screen 03/14/18 03/14/1818 18:31 18:31 18:31 WBC RBC Hgb Hct MCV MCH MCHC RDW Plt Count MPV Absolute Neuts (auto) Neutrophils % Lymphocytes % Monocytes % Eosinophils % Basophils % PT with INR 11.4 INR 1.02 PTT (Actin FS) 25.3 Sodium Potassium Chloride Carbon Dioxide Anion Gap BUN Creatinine Creat Clearance w eGFR Random Glucose Lactic Acid 0.9 Calcium Total Bilirubin AST ALT Alkaline Phosphatase Total Protein Albumin Lipase Urine Color Urine Appearance Urine pH Ur Specific [place] Urine Protein Urine Glucose (UA) Urine Ketones Urine Blood Urine Nitrite Urine Bilirubin Urine Urobilinogen Ur Leukocyte Esterase Urine RBC Urine WBC Ur Epithelial Cells Urine Bacteria Influenza A (Rapid) Negative Influenza B (Rapid) Negative Blood Type Antibody Screen 03/14/18 03/14/18 03/15/18 22:20 22:20 00:00 WBC RBC Hgb Hct MCV MCH MCHC RDW Plt Count MPV Absolute Neuts (auto) Neutrophils % Lymphocytes % Monocytes % Eosinophils % Basophils % PT with INR INR PTT (Actin FS) Sodium Potassium Chloride Carbon Dioxide Anion Gap BUN Creatinine Creat Clearance w eGFR Random Glucose Lactic Acid Calcium Total Bilirubin AST ALT Alkaline Phosphatase Total Protein Albumin Lipase 106 Urine Color Urine Appearance Urine pH Ur Specific [place] Urine Protein Urine Glucose (UA) Urine Ketones Urine Blood Urine Nitrite Urine Bilirubin Urine Urobilinogen Ur Leukocyte Esterase Urine RBC Urine WBC Ur Epithelial Cells Urine Bacteria Influenza A (Rapid) Influenza B (Rapid) Blood Type A POSITIVE A POSITIVE Antibody Screen Negative 03/15/18 03/15/18 07:00 07:00 WBC 3.8 L RBC 3.48 L Hgb 10.9 Hct 33.8 MCV 97.0 H MCH 31.3 MCHC 32.3 RDW 12.4 Plt Count 172 MPV 8.0 Absolute Neuts (auto) Neutrophils % Lymphocytes % Monocytes % Eosinophils % Basophils % PT with INR INR PTT (Actin FS) Sodium 134 L Potassium 4.0 Chloride 104 Carbon Dioxide 22 Anion Gap 8 BUN 7 Creatinine 0.5 L Creat Clearance w eGFR > 60 Random Glucose 116 H Lactic Acid Calcium 8.1 L Total Bilirubin AST ALT Alkaline Phosphatase Total Protein Albumin Lipase Urine Color Urine Appearance Urine pH Ur Specific [place] Urine Protein Urine Glucose (UA) Urine Ketones Urine Blood Urine Nitrite Urine Bilirubin Urine Urobilinogen Ur Leukocyte Esterase Urine RBC Urine WBC Ur Epithelial Cells Urine Bacteria Influenza A (Rapid) Influenza B (Rapid) Blood Type Antibody Screen ASSESSMENT/PLAN 67 year-old female with a PMH significant for 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 Admitted for headache and neck pain. Headache Neck pain --reported fever at home but afebrile here, no leukocytosis --seen and evaluated by ID, suspicion for viral meningitis; LP attempt in ED unsuccessful; sent to IR for LP but patient has been on NSAIDS and tap not done --observe off antibiotics per Dr. Tran --CT head negative x 2; MRI pending --headache has migranous features (nausea, light and sound sensitivity); neuro consult pending Seizure disorder --thought to be secondary to a benign temporal lobe lesion --stable, no seizure activity for years --continue lamotragine, will get level Depression --continue Prozac FEN Fluids: NS@83mL/hr Electrolytes: replete as indicated Nutrition: low sodium DVT prophylaxis: subq lovenox Dispo: continues to require inpatient care. Full code. Visit type - Emergency Visit Emergency Visit: Yes ED Registration Date: 03/15/18 Care time: The patient presented to the Emergency Department on the above date and was hospitalized for further evaluation of their emergent condition. - New Patient This patient is new to me today: Yes Date on this admission: 03/16/18 - Critical Care Critical Care patient: No
[2018-03-15 09:38] LABS: ALBUMIN 2.8 g/dl (3.5-5.0); ALK PHOS 75 U/L (32-92); BILIRUBIN,TOTAL 0.6 mg/dl (0.2-1.0); SGOT/AST 36 U/L (10-42); SGPT/ALT 50 U/L (10-40); TOT PROT 5.1 g/dl (6.4-8.3)
[2018-03-15 09:41] LABS: ANION GAP 8 MMOL/L (8-16); CHLORIDE 105 mmol/L (98-107); GLUCOSE,RANDOM 112 mg/dl (74-106); SODIUM 135 mmol/L (136-145)
[2018-03-15] MEDS ORDERED: PATIENT'S OWN MEDICATION (NON-FORMULARY) (Lamotrigine [Lamictal Xr] 200 MG) PO SCH (10:00)
[2018-03-15] MEDS ORDERED: HEPARIN NA (PORCINE) 5,000 UNITS/ML 1ML VIAL SQ SCH (10:00)
[2018-03-15] MEDS: CHOLECALCIFEROL (VITAMIN D3) 1,000 UNIT TABLET (FP) PO SCH (10:10)
[2018-03-15] MEDS: VALSARTAN 160 MG TABLET (UD) PO SCH (10:11)
[2018-03-15] MEDS: FLUoxetine HCL 20 MG CAPSULE (FP) PO SCH (10:11)
[2018-03-15] MEDS: FOLIC ACID 1 MG TABLET (FP) PO SCH (10:11)
[2018-03-15 11:26] LABS: ALBUMIN 2.9 g/dl (3.5-5.0); BILIRUBIN,TOTAL 0.7 mg/dl (0.2-1.0); TOT PROT 5.1 g/dl (6.4-8.3)
[2018-03-15 11:31] LABS: BILIRUBIN,DIRECT 0.1 mg/dL (0.0-0.3)
--- NOTE | 2018-03-15 12:07 | CONS ---
INFECTIOUS DISEASE CONSULTATION DATE OF CONSULTATION: 03/15/2018 The patient is a 67-year-old female who is evaluated for possible viral meningitis. The patient is visiting from [place]. She reports developing headache on March 12. She presented to an urgent care center where she was evaluated. She was referred to the emergency room at [facility] for an emergent CAT scan of the head. She was evaluated in the emergency room. At which time, a CAT scan was performed and was negative for acute infarct or bleed. She was discharged home. After discharge, patient reports worsening headache associated with nausea, fever, chills, neck pain, and mild photophobia. She returned to the emergency room where she was re-evaluated. Acute meningitis was considered and a lumbar puncture was attempted and she was given dexamethasone, vancomycin, and ceftriaxone. The LP was unsuccessful. She presently is awake and alert. She continues to have headache, although she reports the headache is less severe, categorized as a 5/10. She denies any photophobia at the present time. She does have some neck and shoulder discomfort and stiffness. Patient denies any ill contacts. No recent respiratory tract illness. No recent febrile illness. No rash. She denies any tick or mosquito bites. Patient is originally from [place], however, has been living in [place] and is now visiting for the holidays. PAST MEDICAL HISTORY: Positive for hypertension, seizure disorder, depression. ALLERGIES: No known allergies. MEDICATIONS: Valsartan, , Paxil. SOCIAL HISTORY: Denies tobacco, alcohol, and illicit drug use. SYSTEMS REVIEW: Neurologic: As per HPI. Cardiac: Negative chest pain or palpitations. Respiratory: Negative cough or sputum production. Gastrointestinal: Positive for nausea. Denies vomiting or diarrhea. Genitourinary: Negative for urinary tract infection. LABORATORY DATA: White count 5.3, hematocrit 38.5, platelet count 193. Creatinine 0.6, total bilirubin 0.8. Alkaline phosphatase 97, AST 66, ALT 71. Urinalysis: White cells 2-5. Chest x-ray negative. Sonogram shows cholelithiasis with somewhat thickened gallbladder. PHYSICAL EXAMINATION: General: She is awake and alert. She is seated in bed. She is not acutely toxic appearing, does not appear to have photophobia. Vital Signs: Temperature 98.7; blood pressure 132/61; pulse 70, regular; respirations 18 per minute. HEENT: Sclerae anicteric. Oropharynx negative. Neck: Supple with some tenderness on flexion. Positive submandibular adenopathy. Heart: Sounds S1, S2. Lungs: Clear. Abdomen: Soft. No tenderness elicited. No mass, rebound, or rigidity. Extremities: Negative for edema. IMPRESSION: 1. Viral syndrome, rule out viral meningitis. 2. Incidental finding of cholelithiasis, doubt acute cholecystitis. Case discussed with hospitalist and ER staff. They are to arrange for an urgent lumbar puncture under fluoroscopy with specimen for Gram stain, cell count, protein, glucose, and other studies as dictated by initial analysis of the spinal fluid. Would hold further antibiotic therapy at this time as patient is afebrile and does not appear to be acutely toxic. I suspect sonogram findings likely incidental. Patient has no abdominal pain to suggest acute cholecystitis. Thank you for the kind referral. AYESHA MCCLAIN M.D. [id number]
[2018-03-16] MEDS: SODIUM CHLORIDE 1,000 ML IV SCH (02:20)
[2018-03-16] MEDS: ACETAMINOPHEN 500 MG TABLET (FP) PO PRN (02:21)
[2018-03-16] MEDS ORDERED: LORazepam 2 MG/ML SDV VIAL ONE (08:37)
[2018-03-16] MEDS ORDERED: LORazepam 2 MG/ML SDV VIAL IVPUSH ONE (09:00)
[2018-03-16] MEDS: VALSARTAN 160 MG TABLET (UD) PO SCH (12:32)
[2018-03-16] MEDS: FLUoxetine HCL 20 MG CAPSULE (FP) PO SCH (12:32)
[2018-03-16] MEDS: FOLIC ACID 1 MG TABLET (FP) PO SCH (12:32)
[2018-03-16] MEDS: CHOLECALCIFEROL (VITAMIN D3) 1,000 UNIT TABLET (FP) PO SCH (12:33)
[2018-03-16] MEDS ORDERED: ACETAMINOPHEN/CAFFEINE/BUTALBITAL 1 TAB PO SCH (14:15)
[2018-03-16] MEDS ORDERED: lamoTRIgine 100 MG TABLET (FP) PO ONE (14:15)
--- NOTE | 2018-03-16 14:18 | PN ---
Physical Exam: SUBJECTIVE: Patient seen and examined at bedside. Headache was better yesterday , had a difficult night not sleeping, this morning headache back to 01/05. Provided caffeinated sodas, not much improvement. Gave one dose subq sumatriptan and headache went from 01/05 to 06/05. OBJECTIVE: Vital Signs Period Temp Pulse Resp BP Sys/King Pulse Ox Last 24 Hr 98.3 F-99.1 F 59-76 16-18 122-141/44-53 95-99 GENERAL: The patient is awake, alert, and fully oriented, in no acute distress. LUNGS: Breath sounds equal, clear to auscultation bilaterally, no wheezes, no crackles, no accessory muscle use. HEART: Regular rate and rhythm, S1, S2 without murmur, rub or gallop. ABDOMEN: Soft, nontender, nondistended EXTREMITIES: 2+ pulses, warm, well-perfused, no edema. NEUROLOGICAL: Cranial nerves II through XII grossly intact. Normal speech, gait not observed. Active Medications Generic Name Dose Route Start Last Admin Trade Name Freq PRN Reason Stop Dose Admin Acetaminophen 500 mg 03/15/18 01:50 03/16/18 02:21 Tylenol - PO 500 mg Q6H PRN Administration HEADACHE Cholecalciferol 5,000 unit 03/15/18 10:00 03/16/18 12:33 Vitamin D3 - PO 5,000 unit DAILY WARREN Administration Fluoxetine HCl 20 mg 03/15/18 10:00 03/16/18 12:32 Prozac - PO 20 mg DAILY WARREN Administration Folic Acid 1 mg 03/15/18 10:00 03/16/18 12:32 Folic Acid - PO 1 mg DAILY WARREN Administration Gabapentin 200 mg 03/15/18 02:00 03/15/18 21:42 Neurontin - PO 200 mg HS WARREN Administration Sodium Chloride 1,000 mls @ 83 mls/hr 03/15/18 01:45 03/16/18 02:20 Normal Saline - IV 83 mls/hr ASDIR WARREN Administration Lamotrigine 200 mg 03/16/18 22:00 Lamictal - PO BID WARREN Sumatriptan Succinate 6 mg 03/16/18 14:15 Imitrex Injection - SQ 03/16/18 14:16 ONCE ONE Valsartan 160 mg 03/15/18 10:00 03/16/18 12:32 Diovan - PO 160 mg DAILY WARREN Administration ASSESSMENT/PLAN: 67 year-old female with a PMH significant for 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 Admitted for headache and neck pain. Headache likely migraine --afebrile here, no leukocytosis, neck pain/stiffness has resolved --less suspicion for viral meningitis; LP unsuccessful; continue to observe off antibiotics per Dr. Tran --CT head negative x 2, MRI brain: no acute intracranial pathology --headache has migrainous features (nausea, light and sound sensitivity), and markedly improved with sumatriptan --sumatriptan 100mg PRN --stabilize caffeine intake Depression --continue Prozac FEN Fluids: PO intake adequate Electrolytes: replete as indicated Nutrition: low sodium DVT prophylaxis: subq lovenox Dispo: continues to require inpatient care. Full code. Visit type - Emergency Visit Emergency Visit: Yes ED Registration Date: 03/15/18 Care time: The patient presented to the Emergency Department on the above date and was hospitalized for further evaluation of their emergent condition. - New Patient This patient is new to me today: No - Critical Care Critical Care patient: No
[2018-03-16] MEDS ORDERED: SUMATRIPTAN SUCCINATE 6 MG/0.5 ML VIAL SQ ONE (15:00)
--- NOTE | 2018-03-16 15:36 | CONSULT ---
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 On Valsartan and prozac. For much of her adult life she experienced stereotyped episodes of abdominal and chest pressure followed by an "explosion in her head" described as "like an orgasm but not pleasurable." These predominantly occurred in sleep. Diagnosed with complex partial seizures and followed by Dr. Tadeo Coleman at [facility] with good control on Lamotrigine ER 400 mg q AM. The patient also describes rare, stereotyped headaches since childhood, often occurring with colds and febrile illnesses. These are associated with nausea and light sensitivity (photophobia) and are improved with caffeine (diet coke). + FH of migraines in 2 of 4 children. Mrs. Lozada is now admitted after 1 week of waxing and waning headaches beginning with temps (to 101.8 at home). Now afebrile but headaches persist. Present in the AM, they improve after diet coke but return in the PM. Holocranial pressing and throbbing with nausea and photophobia. Improving over the last few days (ie: dull headaches recurring in the evening only). MRI of the brain (reviewed): Normal study with scattered subcortical microvascular changes. ANSELMO: Neck supple. - Kernig. No external head trauma. NEURO: MS/speech: Normal CN II-XII: Normal without nystagmus Motor: No drift or tremor. Normal strength, tone bulk and reflexes Toes downgoing Coordination: No FTN dystaxia Sensory: Normal. Romberg - Gait: Normal IMP: Normal Neurological exam Complex Partial Seizures- well-controlled on Lamotrigine ER 400 mg/d Status Migrainosis probably induced by fever and sustained by Caffeine withdrawal. Cannot fully exclude viral meningitis but less likely. LP unlikely to influence treatment at this juncture. Suggest: Try sumatriptan 100 mg PRN Stabilize caffeine intake Continue Lamotrigine ER 400 mg qd Neuro f/u as out patient if headaches persist. Thank you very much, Elias Fields MD
[2018-03-16] MEDS: ENOXAPARIN NA (PORCINE) 40 MG/0.4 ML DISP.SYRIN SQ SCH (16:13)
[2018-03-17] MEDS: GABAPENTIN 100 MG CAPSULE (FP) PO SCH ×2 (01:12→21:43)
[2018-03-17] MEDS: lamoTRIgine 100 MG TABLET (FP) PO SCH ×2 (01:12→11:23)
[2018-03-17] MEDS: SUMAtriptan SUCCINATE 50 MG TABLET PO PRN ×2 (06:09→21:45)
[2018-03-17] MEDS ORDERED: KETOROLAC TROMETHAMINE 30 MG/1 ML VIAL IVPUSH ONE (09:00)
[2018-03-17] MEDS: CHOLECALCIFEROL (VITAMIN D3) 1,000 UNIT TABLET (FP) PO SCH (09:40)
[2018-03-17] MEDS: FOLIC ACID 1 MG TABLET (FP) PO SCH (09:41)
[2018-03-17] MEDS: FLUoxetine HCL 20 MG CAPSULE (FP) PO SCH (09:41)
[2018-03-17] MEDS: VALSARTAN 160 MG TABLET (UD) PO SCH (09:41)
[2018-03-17] MEDS: ENOXAPARIN NA (PORCINE) 40 MG/0.4 ML DISP.SYRIN SQ SCH (09:41)
[2018-03-17] MEDS ORDERED: PT OWN MED DRAWER 7, Y5N ONE ×2 (09:47→21:31)
--- NOTE | 2018-03-17 10:04 | PN ---
Progress Note, Physician History of Present Illness: c/o Frontal headache Partial relief with toradol and imitrex No c/o photophobia/ neck stiffness Afebrile - Current Medication List Current Medications: Active Medications Acetaminophen (Tylenol -) 500 mg PO Q6H PRN PRN Reason: HEADACHE Last Admin: 03/16/18 02:21 Dose: 500 mg Cholecalciferol (Vitamin D3 -) 5,000 unit PO DAILY [facility] Last Admin: 03/17/18 09:40 Dose: 5,000 unit Enoxaparin Sodium (Lovenox -) 40 mg SQ DAILY [facility] Last Admin: 03/17/18 09:41 Dose: 40 mg Fluoxetine HCl (Prozac -) 20 mg PO DAILY [facility] Last Admin: 03/17/18 09:41 Dose: 20 mg Folic Acid (Folic Acid -) 1 mg PO DAILY [facility] Last Admin: 03/17/18 09:41 Dose: 1 mg Gabapentin (Neurontin -) 200 mg PO HS [facility] Last Admin: 03/17/18 01:12 Dose: Not Given Lamotrigine (Lamictal -) 200 mg PO BID [facility] Last Admin: 03/17/18 01:12 Dose: Not Given Sumatriptan Succinate (Imitrex -) 100 mg PO ONCE PRN PRN Reason: HEADACHE Last Admin: 03/17/18 06:09 Dose: 100 mg Valsartan (Diovan -) 160 mg PO DAILY [facility] Last Admin: 03/17/18 09:41 Dose: 160 mg - Objective Vital Signs: Vital Signs Temperature 98.5 F 03/17/18 07:47 Pulse Rate 62 03/17/18 07:47 Respiratory Rate 18 03/17/18 07:47 Blood Pressure 147/56 L 03/17/18 07:47 O2 Sat by Pulse Oximetry (%) 96 03/17/18 07:47 Constitutional: Yes: No Distress Eyes: Yes: Conjunctiva Clear Cardiovascular: Yes: Regular Rate and Rhythm, S1, S2 Respiratory: Yes: CTA Bilaterally Gastrointestinal: Yes: Normal Bowel Sounds, Soft. No: Tenderness Edema: No Labs: CBC, BMP 03/15/18 07:00 03/15/18 07:00 INR, PTT INR 1.02 (0.82-1.09) 03/14/18 18:31 Assessment/Plan Neurology consultation appreciated Suspected migraine, cannot c/o viral/ aseptic meningitis LP precluded per IR by ibuprofen; now on lovenox per hospitalist Continue supportive measures Discussed with at bedside Call placed to IR Willing to do LP tomorrow if lovenox D/C'd and unit of platelets given This was discussed with hospitalist who will follow up Discussed with patient's neurologist Dr. Tadeo Singletary
[2018-03-17 10:18] LABS: BASO % 0.9 % (0-2.0); HEMATOCRIT 37.5 % (32.4-45.2); HEMOGLOBIN 12.4 GM/dl (10.7-15.3); LYMPH % 19.9 % (8-40); MCH 32.2 pg (25.7-33.7); MCHC 33.2 g/dl (32.0-36.0); MEAN CELL VOLUME 96.9 fl (80-96); MEAN PLT VOLUME 7.3 fl (7.5-11.1); MONO % 7.4 % (3.8-10.2); NEUT % 70.8 % (42.8-82.8); PLATELET COUNT 251 K/MM3 (134-434); RBC 3.87 M/mm3 (3.60-5.2); RDW 12.8 % (11.6-15.6); WHITE BLOOD COUNT 6.1 K/mm3 (4.0-10.8)
[2018-03-17 10:36] LABS: ALBUMIN 3.3 g/dl (3.5-5.0); ALK PHOS 83 U/L (32-92); ANION GAP 8 MMOL/L (8-16); BILIRUBIN,TOTAL 0.7 mg/dl (0.2-1.0); BLOOD UREA NITROGEN 7 mg/dl (7-18); CALCIUM 8.9 mg/dl (8.4-10.2); CHLORIDE 97 mmol/L (98-107); CO2 28 mmol/L (22-28); CREATININE 0.6 mg/dl (0.6-1.3); GLUCOSE,RANDOM 95 mg/dl (74-106); MAGNESIUM 1.7 mg/dL (1.8-2.4); SGOT/AST 22 U/L (10-42); SGPT/ALT 34 U/L (10-40); SODIUM 133 mmol/L (136-145); TOT PROT 5.8 g/dl (6.4-8.3)
[2018-03-17] MEDS: LAMOTRIGINE 200 MG PO SCH (11:23)
--- NOTE | 2018-03-17 12:28 | PN ---
Physical Exam: SUBJECTIVE: Patient seen and examined at bedside. Chatting on cell phone. States she got significant relief of headache from Toradol this morning. OBJECTIVE: Vital Signs Period Temp Pulse Resp BP Sys/King Pulse Ox Last 24 Hr 98.3 F-99.2 F 50-69 18-19 123-147/40-56 95-99 GENERAL: The patient is awake, alert, and fully oriented, in no acute distress. Conversational. Comfortable. Sitting up in bed chatting on cell phone. HEAD: Normal with no signs of trauma. LUNGS: Breath sounds equal, clear to auscultation bilaterally, no wheezes, no crackles, no accessory muscle use. HEART: Regular rate and rhythm, S1, S2 without murmur, rub or gallop. ABDOMEN: Soft, nontender, nondistended, normoactive bowel sounds EXTREMITIES: 2+ pulses, warm, well-perfused, no edema. NEUROLOGICAL: Cranial nerves II through XII grossly intact. Normal speech SKIN: Warm, dry, normal turgor, no rashes or lesions noted Laboratory Results - last 24 hr 03/17/18 03/17/18 09:50 09:50 WBC 6.1 RBC 3.87 Hgb 12.4 Hct 37.5 MCV 96.9 H MCH 32.2 MCHC 33.2 RDW 12.8 Plt Count 251 MPV 7.3 L Absolute Neuts (auto) 4.3 Neutrophils % 70.8 Lymphocytes % 19.9 Monocytes % 7.4 Eosinophils % 1.0 Basophils % 0.9 Sodium 133 L Potassium 4.0 Chloride 97 L Carbon Dioxide 28 D Anion Gap 8 BUN 7 Creatinine 0.6 Creat Clearance w eGFR > 60 Random Glucose 95 Calcium 8.9 Magnesium 1.7 L Total Bilirubin 0.7 AST 22 D ALT 34 D Alkaline Phosphatase 83 Total Protein 5.8 L Albumin 3.3 L Active Medications Generic Name Dose Route Start Last Admin Trade Name Freq PRN Reason Stop Dose Admin Acetaminophen 500 mg 03/15/18 01:50 03/16/18 02:21 Tylenol - PO 500 mg Q6H PRN Administration HEADACHE Cholecalciferol 5,000 unit 03/15/18 10:00 03/17/18 09:40 Vitamin D3 - PO 5,000 unit DAILY [facility] Administration Fluoxetine HCl 20 mg 03/15/18 10:00 03/17/18 09:41 Prozac - PO 20 mg DAILY [facility] Administration Folic Acid 1 mg 03/15/18 10:00 03/17/18 09:41 Folic Acid - PO 1 mg DAILY [facility] Administration Gabapentin 200 mg 03/15/18 02:00 03/17/18 01:12 Neurontin - PO Not Given HS [facility] Non-Formulary Med ( 2 each 03/17/18 11:00 03/17/18 11:23 Lamotrigine 200mg Xr PO 2 each ) DAILY [facility] Administration Sumatriptan Succinate 100 mg 03/16/18 17:50 03/17/18 06:09 Imitrex - PO 100 mg ONCE PRN Administration HEADACHE Valsartan 160 mg 03/15/18 10:00 03/17/18 09:41 Diovan - PO 160 mg DAILY [facility] Administration ASSESSMENT/PLAN 67 year-old female with a PMH significant for 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 Admitted for headache. Headache likely migraine --afebrile here, no leukocytosis, neck pain/stiffness has resolved --CT head negative x 2, MRI brain: no acute intracranial pathology --less suspicion for viral meningitis; LP in ED was unsuccessful; IR declined to do LP on 03/15 due to NSAID use; will do LP tomorrow, hold lovenox and give 1U platelets prior to procedure --continue to observe off antibiotics per Dr. Tran --headache has migrainous features (nausea, light and sound sensitivity), and markedly improved with sumatriptan and Toradol --sumatriptan 100mg PRN --stabilize caffeine intake Depression --continue Prozac FEN Fluids: PO intake adequate Electrolytes: replete as indicated Nutrition: low sodium DVT prophylaxis: scds, oob, ambulation Dispo: continues to require inpatient care. Full code. Visit type - Emergency Visit Emergency Visit: Yes ED Registration Date: 03/15/18 Care time: The patient presented to the Emergency Department on the above date and was hospitalized for further evaluation of their emergent condition. - New Patient This patient is new to me today: No - Critical Care Critical Care patient: No
[2018-03-17] MEDS ORDERED: METOCLOPRAMIDE HCL INJECTION 10 MG/2 ML VIAL IVPUSH PRN (12:59)
[2018-03-17] MEDS ORDERED: methylPREDNISolone NA SUCC 40 MG/1 ML VIAL IVPUSH PRN (13:00)
[2018-03-17] MEDS: ACETAMINOPHEN 500 MG TABLET (FP) PO PRN ×2 (14:41→22:03)
[2018-03-18] MEDS: ACETAMINOPHEN 500 MG TABLET (FP) PO PRN (05:57)
[2018-03-18] MEDS ORDERED: MAGNESIUM OXIDE 400 MG TABLET (FP) PO ONE (09:12)
--- NOTE | 2018-03-18 09:32 | PN ---
Physical Exam: SUBJECTIVE: Patient seen and examined. Continues to have dull head ache bi lateral temporal, and then moves around states worsens as day goes on, stabbing in nature. Photosensitivity persists. Febrile this am 101 with associate chill. OBJECTIVE: Vital Signs Period Temp Pulse Resp BP Sys/King Pulse Ox Last 24 Hr 98.3 F-101.6 F 50-68 16-18 114-142/48-53 96-99 PE Neuro: alert, awake, cn 2-12intact Pulm: CTAB CV: s1 s2 rrr no mrg Abd: s nt nd + bs Ext: no le edema, warm Laboratory Results - last 24 hr 03/17/18 03/17/18 09:50 09:50 WBC 6.1 RBC 3.87 Hgb 12.4 Hct 37.5 MCV 96.9 H MCH 32.2 MCHC 33.2 RDW 12.8 Plt Count 251 MPV 7.3 L Absolute Neuts (auto) 4.3 Neutrophils % 70.8 Lymphocytes % 19.9 Monocytes % 7.4 Eosinophils % 1.0 Basophils % 0.9 Sodium 133 L Potassium 4.0 Chloride 97 L Carbon Dioxide 28 D Anion Gap 8 BUN 7 Creatinine 0.6 Creat Clearance w eGFR > 60 Random Glucose 95 Calcium 8.9 Magnesium 1.7 L Total Bilirubin 0.7 AST 22 D ALT 34 D Alkaline Phosphatase 83 Total Protein 5.8 L Albumin 3.3 L Active Medications Generic Name Dose Route Start Last Admin Trade Name Freq PRN Reason Stop Dose Admin Acetaminophen 500 mg 03/15/18 01:50 03/18/18 05:57 Tylenol - PO 500 mg Q6H PRN Administration HEADACHE Cholecalciferol 5,000 unit 03/15/18 10:00 03/17/18 09:40 Vitamin D3 - PO 5,000 unit DAILY [facility] Administration Fluoxetine HCl 20 mg 03/15/18 10:00 03/17/18 09:41 Prozac - PO 20 mg DAILY [facility] Administration Folic Acid 1 mg 03/15/18 10:00 03/17/18 09:41 Folic Acid - PO 1 mg DAILY [facility] Administration Gabapentin 200 mg 03/15/18 02:00 03/17/18 21:43 Neurontin - PO 200 mg HS [facility] Administration Magnesium Oxide 800 mg 03/18/18 09:12 Mag-Ox - PO 03/18/18 09:13 ONCE ONE Non-Formulary Med ( 2 each 03/17/18 11:00 03/17/18 11:23 Lamotrigine 200mg Xr PO 2 each ) DAILY [facility] Administration Valsartan 160 mg 03/15/18 10:00 03/17/18 09:41 Diovan - PO 160 mg DAILY [facility] Administration Assessment: 67 year old female with a PMH significant for 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 Admitted for headache. Plan: 1. Persistent Headache - Possible migraine v viral (less likely) - Scheduled for IR today, will need platelet transfusion prior to procedure - Observe off abx - Dr. Tran and Dr. Muse aware - Sumatriptan 100mg PRN 2. Fever - x1 spike this AM - Obtain viral swab, influenza - BC, Ux neg from 03/14, if spikes again re culture 3. Complex Partial Seizures - Lamotrigine ER 400 mg/d 4. Depression - Continue Prozac 5. Hypomagnesemia - Replete mg Dispo: continues to require inpatient care. Full code. Visit type - Emergency Visit Emergency Visit: Yes ED Registration Date: 03/15/18 Care time: The patient presented to the Emergency Department on the above date and was hospitalized for further evaluation of their emergent condition. - New Patient This patient is new to me today: Yes Date on this admission: 03/18/18 - Critical Care Critical Care patient: No
[2018-03-18] MEDS: VALSARTAN 160 MG TABLET (UD) PO SCH (10:37)
[2018-03-18] MEDS: FLUoxetine HCL 20 MG CAPSULE (FP) PO SCH (10:37)
[2018-03-18] MEDS: FOLIC ACID 1 MG TABLET (FP) PO SCH (10:37)
[2018-03-18] MEDS: LAMOTRIGINE 200 MG PO SCH (10:38)
[2018-03-18] MEDS: CHOLECALCIFEROL (VITAMIN D3) 1,000 UNIT TABLET (FP) PO SCH (10:38)
[2018-03-18] MEDS ORDERED: PT OWN MED DRAWER 7, Y5N ONE (10:53)
--- NOTE | 2018-03-18 13:13 | PN ---
Progress Note, Physician History of Present Illness: Pt seen in ambulatory surgery Awaiting LP No c/o headache Febrile overnight- had been afebrile No c/o photophobia/ neck stiffness - Current Medication List Current Medications: Active Medications Acetaminophen (Tylenol -) 500 mg PO Q6H PRN PRN Reason: HEADACHE Last Admin: 03/18/18 05:57 Dose: 500 mg Cholecalciferol (Vitamin D3 -) 5,000 unit PO DAILY [facility] Last Admin: 03/18/18 10:38 Dose: 5,000 unit Fluoxetine HCl (Prozac -) 20 mg PO DAILY [facility] Last Admin: 03/18/18 10:37 Dose: 20 mg Folic Acid (Folic Acid -) 1 mg PO DAILY [facility] Last Admin: 03/18/18 10:37 Dose: 1 mg Gabapentin (Neurontin -) 200 mg PO HS [facility] Last Admin: 03/17/18 21:43 Dose: 200 mg Non-Formulary Med ( Lamotrigine 200mg Xr ) 2 each PO DAILY [facility] Last Admin: 03/18/18 10:38 Dose: 2 each Valsartan (Diovan -) 160 mg PO DAILY [facility] Last Admin: 03/18/18 10:37 Dose: 160 mg - Objective Vital Signs: Vital Signs Temperature 98.7 F 03/18/18 12:10 Pulse Rate 56 L 03/18/18 12:10 Respiratory Rate 16 03/18/18 12:10 Blood Pressure 115/56 L 03/18/18 12:10 O2 Sat by Pulse Oximetry (%) 96 03/18/18 06:09 Constitutional: Yes: No Distress Eyes: Yes: Conjunctiva Clear Neck: Yes: Supple Cardiovascular: Yes: Regular Rate and Rhythm, S1, S2 Respiratory: Yes: CTA Bilaterally Gastrointestinal: No: Tenderness Edema: No Labs: CBC, BMP 03/17/18 09:50 03/17/18 09:50 INR, PTT INR 1.02 (0.82-1.09) 03/14/18 18:31 Assessment/Plan Headache R/O viral meningitis For LP today Specimen for cell count, protein/ glucose, gram stain, HSV PCR, WNV, crypt ag, CSF VDRL
[2018-03-18] MEDS ORDERED: ACETAMINOPHEN 325 MG TABLET (FP) ONE (16:03)
[2018-03-18 16:23] LABS: CSF APPEARANCE CLEAR; CSF COLOR COLORLESS; CSF WBC 6
[2018-03-18 18:14] LABS: BF GLUCOSE (CSF ONLY) 41 mg/dL (40-70)
[2018-03-18] MEDS: GABAPENTIN 100 MG CAPSULE (FP) PO SCH (21:20)
[2018-03-19] MEDS: ACETAMINOPHEN 500 MG TABLET (FP) PO PRN (04:43)
[2018-03-19 09:02] VITALS: BP 109/46; PULSE 63; TEMP 98.2
--- NOTE | 2018-03-19 09:03 | PN ---
Physical Exam: SUBJECTIVE: Patient seen and examined. Pt c/o mild pounding LE[place]UGA, denies dizziness,blurred/ double vision, cp, sob, palpitations, abdominal pain,N/V/D or urinary symptoms. OBJECTIVE: Vital Signs Period Temp Pulse Resp BP Sys/King Pulse Ox Last 24 Hr 97.9 F-100.3 F 56-72 16-17 115-157/50-70 96-98 GENERAL: The patient is awake, alert, and fully oriented, in no acute distress. HEAD: Normal with no signs of trauma. EYES: PERRL, extraocular movements intact, sclera anicteric, conjunctiva clear. No ptosis. ENT: Ears normal, nares patent, oropharynx clear without exudates, moist mucous membranes. NECK: Trachea midline, full range of motion, supple. LUNGS: Breath sounds equal, clear to auscultation bilaterally, no wheezes, no crackles, no accessory muscle use. HEART: Regular rate and rhythm, S1, S2 without murmur, rub or gallop. ABDOMEN: Soft, nontender, nondistended, normoactive bowel sounds, no guarding, no rebound, no hepatosplenomegaly, no masses. EXTREMITIES: 2+ pulses, warm, well-perfused, no edema. NEUROLOGICAL: Cranial nerves II through XII grossly intact. Normal speech, gait not observed. PSYCH: Normal mood, normal affect. SKIN: Warm, dry, normal turgor, no rashes or lesions noted Laboratory Results - last 24 hr 03/16/18 03/18/18 15:50 15:45 CSF Appearance Clear CSF Color Colorless CSF WBC 6 CSF RBC 234 CSF Neutrophils No Result Required. CSF Lymphocytes No Result Required. CSF Eosinophils No Result Required. CSF Basophils No Result Required. CSF Macrophages No Result Required. CSF Plasma Cells No Result Required. CSF Diff Comment No Result Required. CSF Comment No Result Required. CSF Glucose 41 CSF Total Protein 51 H Lamotrigine 5.0 Active Medications Generic Name Dose Route Start Last Admin Trade Name Freq PRN Reason Stop Dose Admin Acetaminophen 500 mg 03/15/18 01:50 03/19/18 04:43 Tylenol - PO 500 mg Q6H PRN Administration HEADACHE Cholecalciferol 5,000 unit 03/15/18 10:00 03/18/18 10:38 Vitamin D3 - PO 5,000 unit DAILY [facility] Administration Fluoxetine HCl 20 mg 03/15/18 10:00 03/18/18 10:37 Prozac - PO 20 mg DAILY [facility] Administration Folic Acid 1 mg 03/15/18 10:00 03/18/18 10:37 Folic Acid - PO 1 mg DAILY [facility] Administration Gabapentin 200 mg 03/15/18 02:00 03/18/18 21:20 Neurontin - PO 200 mg HS [facility] Administration Non-Formulary Med ( 2 each 03/17/18 11:00 03/18/18 10:38 Lamotrigine 200mg Xr PO 2 each ) DAILY [facility] Administration Valsartan 160 mg 03/15/18 10:00 03/18/18 10:37 Diovan - PO 160 mg DAILY [facility] Administration Imaging : Reviewed Microbiology 03/18/18 14:00 Gram Stain - Final Cerebral Spinal Fluid - Lumbar Puncture CSF Culture - Preliminary 03/14/18 18:31 Blood Culture - Preliminary Blood - Peripheral Venous NO GROWTH OBTAINED AFTER 96 HOURS, INCUBATION TO CONTINUE FOR 1 DAYS. 03/14/18 18:31 Blood Culture - Preliminary Blood - Peripheral Venous NO GROWTH OBTAINED AFTER 96 HOURS, INCUBATION TO CONTINUE FOR 1 DAYS. 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 Admitted for headache. * Persistent Headache - Possible migraine v viral (less likely) -afebrile with no leukocytosis - CT and MRI brain - No acute pathology - no neuro changes noted - neuro following,Sumatriptan 100mg PRN,stabilize caffeine intake - s/p LP on 03/18/18- pending reports - BC neg - as per ID Dr. Tran, will monitor off abx. * Fever - afebrile now - influenza ruled - BC, Ux neg from 03/14, if spikes again re culture *Complex Partial Seizures *Depression - Continue Prozac * Hypomagnesemia-normalized - Replete mg *HTN - will cont on Losartan * Pt is requesting discharge, ID Dr. Tran cleared for discharge with out pt neurology followup today. Visit type - Emergency Visit Emergency Visit: Yes ED Registration Date: 03/15/18 Care time: The patient presented to the Emergency Department on the above date and was hospitalized for further evaluation of their emergent condition. - New Patient This patient is new to me today: Yes Date on this admission: 03/19/18 - Critical Care Critical Care patient: No
[2018-03-19 09:31] LABS: ANION GAP 8 MMOL/L (8-16); BLOOD UREA NITROGEN 9 mg/dl (7-18); CALCIUM 8.9 mg/dl (8.4-10.2); CHLORIDE 98 mmol/L (98-107); CO2 30 mmol/L (22-28); CREATININE 0.7 mg/dl (0.6-1.3); GLUCOSE,RANDOM 102 mg/dl (74-106); MAGNESIUM 2.1 mg/dL (1.8-2.4); POTASSIUM 3.9 mmol/L (3.5-5.1); SODIUM 136 mmol/L (136-145)
[2018-03-19] MEDS ORDERED: PT OWN MED DRAWER 7, Y5N ONE (09:54)
--- NOTE | 2018-03-19 09:54 | PN ---
Progress Note, Physician History of Present Illness: Awake, alert Ambulating No c/o headache/neck pain/ photophobia Low grade temp noted CSF gram stain few polys no organisms C/S prelim no growth Viral studies pending - Current Medication List Current Medications: Active Medications Acetaminophen (Tylenol -) 500 mg PO Q6H PRN PRN Reason: HEADACHE Last Admin: 03/19/18 04:43 Dose: 500 mg Cholecalciferol (Vitamin D3 -) 5,000 unit PO DAILY [facility] Last Admin: 03/18/18 10:38 Dose: 5,000 unit Fluoxetine HCl (Prozac -) 20 mg PO DAILY [facility] Last Admin: 03/18/18 10:37 Dose: 20 mg Folic Acid (Folic Acid -) 1 mg PO DAILY [facility] Last Admin: 03/18/18 10:37 Dose: 1 mg Gabapentin (Neurontin -) 200 mg PO HS [facility] Last Admin: 03/18/18 21:20 Dose: 200 mg Non-Formulary Med ( Lamotrigine 200mg Xr ) 2 each PO DAILY [facility] Last Admin: 03/18/18 10:38 Dose: 2 each Valsartan (Diovan -) 160 mg PO DAILY [facility] Last Admin: 03/18/18 10:37 Dose: 160 mg - Objective Vital Signs: Vital Signs Temperature 98.2 F 03/19/18 09:01 Pulse Rate 63 03/19/18 09:01 Respiratory Rate 18 03/19/18 09:01 Blood Pressure 109/46 L 03/19/18 09:01 O2 Sat by Pulse Oximetry (%) 96 03/19/18 09:01 Constitutional: Yes: No Distress Eyes: Yes: Conjunctiva Clear HENT: Yes: Atraumatic Neck: Yes: Supple Cardiovascular: Yes: Regular Rate and Rhythm, S1, S2 Respiratory: Yes: CTA Bilaterally Gastrointestinal: Yes: Normal Bowel Sounds, Soft. No: Tenderness Edema: No Labs: CBC, BMP 03/17/18 09:50 03/19/18 09:10 INR, PTT INR 1.02 (0.82-1.09) 03/14/18 18:31 Assessment/Plan Aseptic meningitis, likely viral Clinically stable for discharge Observe off antibotics Pt has appt with neurologist later today
[2018-03-19] MEDS: FOLIC ACID 1 MG TABLET (FP) PO SCH (09:57)
[2018-03-19] MEDS: FLUoxetine HCL 20 MG CAPSULE (FP) PO SCH (09:57)
[2018-03-19] MEDS: CHOLECALCIFEROL (VITAMIN D3) 1,000 UNIT TABLET (FP) PO SCH (09:57)
[2018-03-19] MEDS: VALSARTAN 160 MG TABLET (UD) PO SCH (09:58)
[2018-03-19] MEDS: LAMOTRIGINE 200 MG PO SCH (09:58)
--- NOTE | 2018-03-19 11:46 | DS ---
Physical Exam: SUBJECTIVE: Patient seen and examined OBJECTIVE: Vital Signs Period Temp Pulse Resp BP Sys/King Pulse Ox Last 24 Hr 97.9 F-100.3 F 56-72 16-18 109-157/46-70 96-98 PHYSICAL EXAM GENERAL: The patient is awake, alert, and fully oriented, in no acute distress. HEAD: Normal with no signs of trauma. EYES: PERRL, extraocular movements intact, sclera anicteric, conjunctiva clear. ENT: Ears normal, nares patent, oropharynx clear without exudates, moist mucous membranes. NECK: Trachea midline, full range of motion, supple. LUNGS: Breath sounds equal, clear to auscultation bilaterally, no wheezes, no crackles, no accessory muscle use. HEART: Regular rate and rhythm, S1, S2 without murmur, rub or gallop. ABDOMEN: Soft, nontender, nondistended, normoactive bowel sounds, no guarding, no rebound, no hepatosplenomegaly, no masses. EXTREMITIES: 2+ pulses, warm, well-perfused, no edema. NEUROLOGICAL: Cranial nerves II through XII grossly intact. Normal speech, gait not observed. PSYCH: Normal mood, normal affect. SKIN: Warm, dry, normal turgor, no rashes or lesions noted. LABS Laboratory Results - last 24 hr 03/18/18 03/19/18 15:45 09:10 Sodium 136 Potassium 3.9 Chloride 98 Carbon Dioxide 30 H Anion Gap 8 BUN 9 Creatinine 0.7 Creat Clearance w eGFR > 60 Random Glucose 102 Calcium 8.9 Magnesium 2.1 CSF Appearance Clear CSF Color Colorless CSF WBC 6 CSF RBC 234 CSF Neutrophils No Result Required. CSF Lymphocytes No Result Required. CSF Eosinophils No Result Required. CSF Basophils No Result Required. CSF Macrophages No Result Required. CSF Plasma Cells No Result Required. CSF Diff Comment No Result Required. CSF Comment No Result Required. 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 Imaging ruled out acute pathology. Developed fever during the hospital stay, now remains afebrile with no leukocytosis, BC preliminary negative. Pt was evaluated by neuro rec Sumatriptan 100mg PRN,stabilize caffeine intake. Seen by ID Dr. Tran,rec to monitor off abx. Pt underwent LP on 03/18/18,CSF gram stain few polys, CS preliminary negative, viral studies pending. Pt requesting to leave,reports has an appointment with her neurologist today. ID cleared for discharge. Pt remains clinically stable. Aseptic meningitis likely viral. *Hx of complex Partial Seizures: Will continue on Lamotrigine and out pt neuro followup. *Depression: Will continue Prozac * Hypomagnesemia: S/p replacement, now normalized *HTN: BP stable, will cont on Losartan Minutes to complete discharge: 40 Discharge Summary Reason For Visit: HEADACHE, CHOLECYSTITIS, R/O MENINGITIS Condition: Stable - Instructions Diet, Activity, Other Instructions: Sodium controlled diet. Referrals: Tadeo Singletary [Primary Care Provider] - 03/19/18 () Disposition: HOME - Home Medications Comprehensive Discharge Medication List: Ambulatory Orders Cholecalciferol (Vitamin D3) [Vitamin D3] 5,000 unit PO DAILY 03/12/18 Fluoxetine HCl 20 mg PO DAILY 03/12/18 Folic Acid 1 mg PO DAILY 03/12/18 Lamotrigine [Lamictal Xr] 400 mg PO DAILY 03/12/18 Valsartan 160 mg PO DAILY 03/12/18 Gabapentin 200 mg PO HS 03/14/18 Ibuprofen [Motrin -] 400 mg PO TID PRN 03/15/18 This patient is new to me today: Yes Date on this admission: 03/19/18 Emergency Visit: Yes ED Registration Date: 03/15/18 Care time: The patient presented to the Emergency Department on the above date and was hospitalized for further evaluation of their emergent condition. Critical Care patient: No - Discharge Referral Referred to [facility] No
== END 2018-03-19 10:15 | disposition home or self-care (01) | DRG 54 ==
LOC: FER 17:31 → FM/S 03-15 00:44
PROVIDERS: ADMIT Internal Medicine; ATTEND Nurse Practitioner Family
PROC: 009U3ZZ Drainage of Spinal Canal, Percutaneous Approach (ICD-10-PCS; principal; 2018-03-14)
PROC: 009U3ZZ Drainage of Spinal Canal, Percutaneous Approach (ICD-10-PCS; 2018-03-18)
PROC: B01BZZZ Fluoroscopy of Spinal Cord (ICD-10-PCS; 2018-03-18)
PROC: 30233R1 Transfusion of Nonautologous Platelets into Peripheral Vein, Percutaneous Approach (ICD-10-PCS; 2018-03-18)
DX: G43.901 Migraine, unspecified, not intractable, with status migrainosus (principal); I10 Essential (primary) hypertension; G40.909 Epilepsy, unspecified, not intractable, without status epilepticus; F32.9 Major depressive disorder, single episode, unspecified; R50.9 Fever, unspecified; G93.9 Disorder of brain, unspecified; M54.2 Cervicalgia; E83.42 Hypomagnesemia; A87.9 Viral meningitis, unspecified
CPT/HCPCS: 36415; 36430; 36511; 62272; 70450-TC; 70552-TC; 71045-TC-FY; 76700-TC; 80048; 80053; 80076; 80175; 81003; 81015; 82945; 83605; 83615; 83690; 83735; 84157; 85025; 85027; 85610; 85730; 86592; 86617; 86788; 86789; 86850; 86900; 86901; 87040; 87070; 87086; 87205; 87476; 87529; 87804; 87899; 99283-25; C1887; J0131; J7030; P9034; P9038